=== PATIENT | male | born 1955 | race Two or more races ===

== ENCOUNTER 2022-10-27 00:44 | Emergency (ER) | payer OTHER ==
[~2022-10-27] VITALS: Ht 172.7 cm; Wt 79.4 kg
[2022-10-27] MEDS ORDERED: ZESTRIL2.5 MG (00:48)
[2022-10-27] MEDS ORDERED: CEPHALEXIN500 MG PO (04:05)
== END 2022-10-27 04:22 ==
LOC: ER 00:44
DX: N39.0 Urinary tract infection, site not specified (principal); T83.011A Breakdown (mechanical) of indwelling urethral catheter, initial encounter; I10 Essential (primary) hypertension